=== PATIENT | male | born 1935 | race Caucasian/White ===

== ENCOUNTER 2017-10-31 09:14 | Inpatient (IN) | payer MEDICARE ==
[2017-10-31 09:36] LABS: #Eosinphils 0.1 thou/uL (0.0-0.7); #Monocytes 0.3 thou/uL (0.11-0.59); %Basophils 0.7 % (0.0-1.0); %Eosinophils 2.6 % (0.0-10.0); %Lymphocytes 30.1 % (21.0-51.0); %Neutrophils 58.6 % (42.0-75.0); Hemoglobin 14.4 g/dL (14.0-18.0); Mean Corpuscular HGB CONC 33.8 g/dL (32.0-36.0); Mean Corpuscular Hemoglobin 30.6 pg (27.0-31.0); Mean Corpuscular Volume 90.6 fl (80.0-94.0); Mean Platelet Volume 6.7 fL (7.4-10.4); Platelet Count 163 thou/uL (130-400); RBC Distribution Width 11.3 % (11.5-14.5); Red Blood Cell (RBC) Count 4.72 mill/uL (4.70-6.10); White Blood Cell (WBC) Count 3.4 thou/uL (4.8-10.8)
[2017-10-31 09:43] LABS: INR-International Normal Ratio 1.1; PTT 29.5 SEC (22.9-36.1); Prothrombin Time 13.9 SEC (12.0-14.7)
[2017-10-31 09:52] LABS: ALT (SGPT) 7 U/L (8-55); AST (SGOT) 12 U/L (5-34); Albumin 4.3 g/dL (3.4-4.8); Alkaline Phosphatase 72 U/L (40-150); Anion Gap 11 mmol/L (10-20); BUN (Urea Nitrogen) 20 mg/dL (8.4-25.7); Bilirubin, Total 0.7 mg/dL (0.2-1.2); CK (CPK) 55 U/L (30-200); Calc. Creatinine Clearance 0 mL/min (70-130); Calcium 9.4 mg/dL (7.8-10.44); Carbon Dioxide 28 mmol/L (23-31); Chloride 101 mmol/L (98-107); Estimated GFR-MDRD 63; Glucose 148 mg/dL (83-110); Potassium 4.2 mmol/L (3.5-5.1); Protein, Total 7.3 g/dL (5.8-8.1); Sodium 136 mmol/L (136-145)
[2017-10-31 09:54] LABS: CKMB 0.7 ng/mL (0-6.6); Troponin I Less than 0.010 ng/mL (< 0.028)
[2017-10-31 10:24] LABS: Bilirubin Negative (Negative); Blood, Urine Negative (Negative); Clarity CLEAR (Clear); Glucose, Urine (Dipstick) Negative (Negative); Leukocyte Negative (Negative); Nitrite Negative (Negative); Protein, Urine (Dipstick) Negative (Neg-Trace); Specific Gravity, Urine 1.026 (1.002-1.036); Urobilinogen 0.2 mg/dL (0.2-1.0); pH, Urine 7.5 (5.0-9.0)
--- NOTE | 2017-10-31 11:17 | CT ---
NONCONTRAST CT HEAD: Date: 10-31-17 History: Left sided facial droop and weakness with slurred speech. Last seen normal at 2100 hours. Comparison: None available. FINDINGS: There are low density foci seen in each basal ganglia suggesting lacunar infarctions of indeterminate age. There is no evidence of an acute cortical infarction, hemorrhage, mass effect, or midline shift . There is diffuse cerebral volume loss. Ventricular system is mildly prominent but overall within no rmal limits for the degree of sulcal atrophy. Visualized paranasal sinuses and mastoid air cells are clear. Calvarial structures are intact. IMPRESSION: 1. Lacunar infarctions of indeterminate age seen in each basal ganglia. There is no evidence of an ac [place] cortical infarction. 2. Cerebral volume loss. 3. Above findings discussed with Dr. Field in the Emergency Department on 10-31-17 at 0923 hours. POS: [facility]
--- NOTE | 2017-10-31 11:42 | CT ---
CT ANGIO HEAD AND NECK WITH IV CONTRAST AND 3D POSTPROCESSING CT PERFUSION: Date: 10/31/17 HISTORY: 82-year-old male with left-sided facial droop and slurred speech FINDINGS: There is good flow without significant stenosis in the common carotid, internal carotid, and vertebra l arteries. There is a small amount of calcified plaque. Intracranially, no evidence of major vessel occlusion, significant stenosis, or aneurysm formation is seen. The CT perfusion demonstrates no evid ence of ischemia or infarct. IMPRESSION: No evidence of acute ischemia or occlusive disease. This study was interpreted in consultation with Dr. Eric Orellana, who concurs. Discussed over the telephone with ER physician, Dr. Field, at 0958 hours. CODE CR. POS: [facility]
--- NOTE | 2017-10-31 11:49 | RAD ---
PORTABLE AP CHEST RADIOGRAPH: Date: 10-31-17 History: Altered mental status. Comparison: 09-02-09 FINDINGS: Cardiac silhouette and pulmonary vasculature are within normal limits for the portable technique of t he study. The lungs remain clear. There has been no interval change when compared to the prior exam. IMPRESSION: No acute cardiopulmonary process. POS: [facility]
[2017-10-31] MEDS ORDERED: ISOVUE-370 76%-LOCM 1 ML ONE (13:07)
[2017-10-31 16:45] VITALS: BMI 34.7
[2017-10-31] MEDS ORDERED: Ondansetron ODT 4 MG TAB PO PRN (19:52)
[2017-10-31] MEDS ORDERED: hydrALAZINE 20 MG/ML VIAL SLOW IVP PRN (19:52)
[2017-10-31] MEDS ORDERED: Acetaminophen 500 MG TAB PO PRN (19:52)
[2017-10-31] MEDS ORDERED: Ondansetron PF 4 MG/2 ML Vial IVP PRN (19:52)
[2017-10-31] MEDS ORDERED: Carbidopa/Levodopa 25-250 mg Tablet PO SCH (21:00)
[2017-10-31] MEDS ORDERED: Atorvastatin Calcium 40 MG TAB PO SCH (21:00)
[2017-10-31] MEDS: Carbidopa/Levodopa 25-250 mg Tablet PO SCH (21:31)
[2017-10-31] MEDS: Famotidine 20 MG TAB PO SCH (21:31)
--- NOTE | 2017-11-01 02:28 | HP ---
DATE OF ADMISSION: 10/31/2017 PRIMARY CARE PHYSICIAN: Dr. Federico Llamas. CHIEF COMPLAINT: Right facial droop and difficulty speaking. HISTORY OF PRESENT ILLNESS: This is an 82-year-old male who presented to [facility] Emergency Department complaining of right facial droop and difficulty forming words and speaking after awaking this morning on 10/31/2017. Patient states he had woken up from sleep whe n he noticed the symptoms and his pointed out as well. Patient denied any headache, visual dist urbance, difficulty with hearing, or swallowing. Patient admitted to some right upper extremity weak ness and the right facial droop persisted. Patient states he had difficulty finding words and formin g words. Patient's gave him two full-strength aspirin, which he took after noticing the symptom s. Patient apparently had TIA stroke-like symptoms in 2013, undergoing MRI imaging of the brain at t hat time showing an area of acute CVA in the right precentral gyrus. Patient apparently was treated with aspirin therapy at that time; however, patient currently states he does not take aspirin or Plav ix on a daily basis. Patient states he does take Sinemet for Parkinson's disease as well as medicati on for his prostate. Patient denies any other exposure history, travel, recent head trauma, fever, c hills, dental procedures, or eye surgery. Patient states he normally has some difficulty ambulating, but typically does not use any assistive device. 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 In the emergency room, patient underwent CT imaging of the brain showing lacunar infarctions of indeter minate age in each basil ganglia. Also noted with cerebral volume loss with chronic changes bilatera lly. Patient also underwent CT angiogram of the head and neck showing no specific occlusive process or stenosis. Patient was referred to the Hospitalist Service for admission. PAST MEDICAL HISTORY: 1. History of TIA in 2013. 2. Parkinson's disease with current Sinemet. 3. Prostate carcinoma, status post medical therapy. PAST SURGICAL HISTORY: 1. Status post colonoscopy with polypectomy. 2. Status post right middle finger excision of benign schwannoma. CURRENT MEDICATIONS: Sinemet 25/250 mg 1 tab p.o. b.i.d. ALLERGIES: No known drug allergies. FAMILY HISTORY: Positive for hypertension. SOCIAL HISTORY: Patient is , residing in [place], [place]. 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 No current alcohol, tobacco, or illicit drug use. REVIEW OF SYSTEMS: The following complete review of systems was otherwise negative, except as stated per HPI: Constitutional: Weight loss or gain, ability to conduct usual activities. Skin: Rash, i tching. Eyes: Double vision, pain. ENT/Mouth: Nose bleeding, neck stiffness, pain, tenderness. C ardiovascular: Palpitations, dyspnea on exertion, orthopnea. Respiratory: Shortness of breath, whe ezing, cough, hemoptysis, fever, or night sweats. Gastrointestinal: Poor appetite, abdominal pain, heartburn, nausea, vomiting, constipation, or diarrhea. Genitourinary: Urgency, frequency, dysuria, nocturia. Musculoskeletal: Pain, swelling. Neurologic/Psychiatric: Anxiety, depression. Allergy /Immunologic: Skin rash, bleeding tendency. PHYSICAL EXAMINATION: VITAL SIGNS: On admission blood pressure 148/94, pulse 92, respiratory rate 16, temperature 98.1 deg juan Fahrenheit, O2 saturation 98% on room air. GENERAL APPEARANCE: This is an 82-year-old male, alert and oriented x3, pleasant, in no ac bishop distress. HEENT: Pupils are equal, round, and reactive to light and accommodation. Extraocular muscles are in tact. No scleral icterus, no conjunctival injection. Nares patent. OP is clear. No oral lesions n oted. Right facial asymmetry noted. Scalp atraumatic. NECK: Supple, no cervical adenopathy, no thyromegaly, no carotid bruits, no JVD appreciated with cer vical spine with full active and passive range of motion. No meningeal signs appreciated. CHEST: Lungs are clear to auscultation bilaterally. CARDIOVASCULAR: S1, S2 with distant heart sounds. No murmur, rub, or gallop appreciated. ABDOMEN: Obese, soft, nontender, nondistended. Bowel sounds are positive in all four quadrants. Th ere is no hepatosplenomegaly, no abdominal bruits, no rebound or guarding appreciated. EXTREMITIES: Warm and dry with fair turgor. No clubbing, cyanosis, or asymmetric edema appreciated. Pulses palpable distally at the dorsalis pedis, posterior tibial, and popliteal arteries bilaterall y. Capillary refill less than 2 seconds. NEUROLOGIC: Right facial droop. Expressive aphasia. Right upper extremity with decreased flow coordinator stre ngth. Muscle strength 4/5 compared to the left upper extremity. Patient not observed ambulatory dur ing this exam. PERTINENT LABORATORY DATA AND X-RAY FINDINGS: Sodium 136, potassium 4.2, chloride 101, CO2 of 28, BU N 20, creatinine 1.11. Estimated GFR 63, glucose 148, calcium 9.4. LFTs within normal limits. Trop onin I negative x1. Albumin 4.3. CBC showed a white blood cell count 3.4, hemoglobin 14, hematocrit 43, platelet count 163. PT 13.9, INR 1.1, PTT 29.5. Urinalysis negative. CT of the brain without contrast dated 10/31/2017 showed lacunar infarctions of indeterminate age in each basal ganglia. Cer ebral volume loss diffusely. CT angiogram of the head and neck dated 10/31/2017 showed no focal sten osis or occlusive disease. Portable chest x-ray dated 10/31/2017 showed no acute cardiopulmonary pro cess. EKG dated 10/31/2017 by my interpretation shows sinus mechanism with occasional PVCs. Normal R- wave progression noted in the precordial leads. Left axis deviation noted. No acute ST-T wave hernández es appreciated. ASSESSMENT AND PLAN: 1. Acute transient ischemic attack. Patient will be admitted to the stroke unit. We will continue aspirin 325 mg daily. Continue general stroke protocol. Consult Neurology Service for evaluation. Obtain 2D transthoracic echocardiogram and MRI imaging of the brain to further delineate neuro-anatom y. 2. Expressive aphasia. Obtain speech therapy consult in the a.m. See #1 above for workup and manag ement. 3. Elevated blood pressure. We will continue to monitor blood pressure trend. Patient may need ini tiation of antihypertensive regimen prior to discharge. 4. Parkinson's disease. Resume home Sinemet and monitor clinical response. 5. Prophylaxis. Sequential compression devices while in bed. Pepcid 20 mg p.o. b.i.d. PT, OT and Speech therapy evaluation pending. 6. Code status is FULL. Surrogate medical decision maker is patient's spouse.
[2017-11-01 06:42] LABS: Eosinophils 4 % (0-10); Hemoglobin 14.5 g/dL (14.0-18.0); Lymphocytes 25 % (21-51); MDiff Complete? YES; Mean Corpuscular HGB CONC 33.8 g/dL (32.0-36.0); Mean Corpuscular Hemoglobin 30.6 pg (27.0-31.0); Mean Corpuscular Volume 90.4 fl (80.0-94.0); Mean Platelet Volume 6.7 fL (7.4-10.4); Monocytes 14 % (0-10); Neutrophil 57 % (42-75); Platelet Count 175 thou/uL (130-400); RBC Distribution Width 11.3 % (11.5-14.5); Red Blood Cell (RBC) Count 4.74 mill/uL (4.70-6.10); White Blood Cell (WBC) Count 4.4 thou/uL (4.8-10.8)
[2017-11-01 07:09] LABS: Anion Gap 14 mmol/L (10-20); BUN (Urea Nitrogen) 14 mg/dL (8.4-25.7); Calc. Creatinine Clearance 78 mL/min (70-130); Calcium 9.5 mg/dL (7.8-10.44); Carbon Dioxide 27 mmol/L (23-31); Cardiac Risk 4.8 (Less than 4.5); Chloride 103 mmol/L (98-107); Cholesterol 219 mg/dl (< 200 Desired); Estimated GFR-MDRD 74; Glucose 88 mg/dL (83-110); HDL Cholesterol 46 mg/dL (>60 Neg Risk); LDL Cholesterol, Calculated 142 mg/dL; Potassium 4.1 mmol/L (3.5-5.1); Sodium 140 mmol/L (136-145); Triglycerides 155 mg/dL (Less than 150)
[2017-11-01] MEDS: Famotidine 20 MG TAB PO SCH (08:33)
[2017-11-01] MEDS: Carbidopa/Levodopa 25-250 mg Tablet PO SCH (08:33)
[2017-11-01] MEDS ORDERED: Aspirin 325 mg Enteric Coated Tablet PO SCH (09:00)
[2017-11-01 12:02] VITALS: TEMP 97.4
--- NOTE | 2017-11-01 12:03 | MRI ---
MRI BRAIN WITHOUT CONTRAST: HISTORY: Left-sided facial droop and weakness with slurred speech, TIA. FINDINGS: There is a 13 mm focal area of restricted diffusion, consistent with an acute infarction, involving t he left basal ganglia and extending into the left periventricular white matter. No hemorrhage, midli ne shift, or abnormal extraaxial fluid collections are seen. There are changes of cortical atrophy a nd chronic small vessel ischemic disease. IMPRESSION: Acute lacunar infarction in the left basal ganglia. POS: [facility]
[2017-11-01 13:19] VITALS: BP 137/72
--- NOTE | 2017-11-02 01:51 | DIS ---
DATE OF ADMISSION: 10/31/2017 DATE OF DISCHARGE: 11/01/2017 DISCHARGE DIAGNOSES: 1. Acute lacunar infarction of the left basal ganglia. 2. Expressive aphasia, secondary to #1. 3. Right facial droop, secondary to #1. 4. Elevated blood pressure. 5. Parkinson's disease. 6. Hyperlipidemia. CONSULTATIONS: None. PERTINENT LABORATORY AND X-RAY FINDINGS: Creatinine ranged between 0.97-1.11 with estimated GFR rang ing between 63-74, troponin I negative x1. Total cholesterol 219, triglycerides 155, HDL 46, LDL 142 . CBC showed a white blood cell count ranging between 3.4-4.4. CT of the brain without contrast shari ed 10/31/2017 showed lacunar infarction of indeterminate age in each basal ganglia. Cerebral volume loss noted. CT angiogram of the head and neck showed no acute occlusive disease or stenosis. Portab le chest x-ray dated 10/31/2017 showed no acute cardiopulmonary process. MRI of the brain dated 08/2017 showed acute lacunar infarction in the left basal ganglia. No hemorrhage, midline shift, or e xtraaxial fluid collection noted. HOSPITAL COURSE: Patient was admitted to the stroke unit after initially presenting with dysarthria, right facial droop, and concern for TIA versus CVA. The patient underwent extensive evaluation incl uding multiple neuro imaging studies with MRI of the brain confirming an acute lacunar infarction of the left basal ganglia with some extension to the periventricular white matter. The patient with nemesio rologic deficits including dysarthria with mild expressive aphasia and right facial asymmetry. The p atient was continued on aspirin 325 mg daily as well as Lipitor 40 mg daily. The patient was schedul ed for 2D transthoracic echocardiogram and Neurology consultation; however, is wanting to leave the h ospital without further testing. The patient has been ambulatory in the hallways, tolerating regular oral intake, and overall feels fine. I have examined the patient at the time of discharge discussin g radiologic studies, current condition, and outpatient followup instructions. The patient and verbalized understanding and agreement and/or proceeding with discharge on 11/01/2017. DISCHARGE MEDICATIONS: 1. Enteric-coated aspirin 325 mg 1 tab p.o. daily. 2. Lipitor 40 mg p.o. at bedtime. 3. Carbidopa/levodopa 250 mg p.o. b.i.d. FOLLOWUP: The patient will follow up with his primary care provider, Dr. Ventura Llamas within 7 days of d ischarge. CONDITION ON DISCHARGE: Fair. ACTIVITY: Ad vianney. No driving until cleared by primary care provider. DIET: Heart healthy. SPECIAL INSTRUCTIONS: Recommend serial blood pressure monitoring with review of blood pressure trend with primary care provider. CODE STATUS: FULL. DISPOSITION: Home, 11/01/2017.
--- NOTE | 2017-11-18 15:58 | EKG ---
Test Reason : Blood Pressure : / mmHG Vent. Rate : 089 BPM Atrial Rate : 089 BPM P-R Int : 194 ms QRS Dur : 088 ms QT Int : 360 ms P-R-T Axes : 092 -31 048 degrees QTc Int : 438 ms Sinus rhythm with occasional Premature ventricular complexes Left axis deviation Abnormal ECG Confirmed by CRISTA ROWLAND ([id number]), manager editorial FABBY BRITTON ([id number]) on 11/18/2017 3:57:28 PM Referred By: Confirmed By:CRISTA ROWLAND
== END 2017-11-01 16:02 | disposition home or self-care (01) | DRG 66 ==
LOC: ERS 09:14 → ERHOLD 11:23 → 2SE 15:03
PROVIDERS: ADMIT Family Medicine; ATTEND Family Medicine
DX: I63.9 Cerebral infarction, unspecified (principal); G20 Parkinson's disease; C61 Malignant neoplasm of prostate; R47.01 Aphasia; R29.810 Facial weakness; R03.0 Elevated blood-pressure reading, without diagnosis of hypertension; E78.5 Hyperlipidemia, unspecified; R47.1 Dysarthria and anarthria
CPT/HCPCS: 0042T; 36415; 36416; 70450; 70496; 70498; 70551; 71045; 80048; 80053; 80061; 81003; 82553; 84484; 85007; 85025; 85027; 85610; 85730; 93005; G8978-GP-CJ; G8979-GP-CJ; G8980-GP-CJ; G8987-GO-CK; G8988-GO-CI; G8999-GN-CK; G9186-GN-CI

== ENCOUNTER 2019-11-25 22:29 | Observation (INO) | payer MEDICARE ==
[2019-11-25 23:34] LABS: #Eosinphils 0.1 thou/uL (0.0-0.7); #Lymphocytes 1.2 thou/uL (1.20-3.40); #Monocytes 0.8 thou/uL (0.11-0.59); %Basophils 0.2 % (0.0-1.0); %Eosinophils 1.2 % (0.0-10.0); %Lymphocytes 16.7 % (21.0-51.0); %Monocytes 11.2 % (0.0-10.0); %Neutrophils 70.7 % (42.0-75.0); Hemoglobin 13.6 g/dL (14.0-18.0); Mean Corpuscular Hemoglobin 30.7 pg (27.0-31.0); Mean Corpuscular Volume 93.3 fL (78.0-98.0); Platelet Count 140 thou/uL (130-400); Red Blood Cell (RBC) Count 4.44 mill/uL (4.70-6.10); White Blood Cell (WBC) Count 7.1 thou/uL (4.8-10.8)
[2019-11-25] MEDS ORDERED: Ondansetron PF 4 MG/2 ML Vial ONE (23:55)
[2019-11-25] MEDS ORDERED: Morphine 4 MG/ML VIAL ONE (23:55)
[2019-11-25 23:58] LABS: ALT (SGPT) 67 U/L (8-55); AST (SGOT) 160 U/L (5-34); Alkaline Phosphatase 69 U/L (40-110); Anion Gap 13 mmol/L (10-20); BUN (Urea Nitrogen) 33 mg/dL (8.4-25.7); Bilirubin, Total 0.9 mg/dL (0.2-1.2); Calc. Creatinine Clearance 0 mL/min (70-130); Calcium 9.4 mg/dL (7.8-10.44); Carbon Dioxide 28 mmol/L (23-31); Chloride 103 mmol/L (98-107); Estimated GFR-MDRD 66; Globulin 3.2 g/dL (2.4-3.5); Glucose 102 mg/dL (83-110); Potassium 4.1 mmol/L (3.5-5.1); Protein, Total 7.2 g/dL (5.8-8.1); Sodium 140 mmol/L (136-145)
[2019-11-26 00:10] LABS: CK (CPK) 4976 U/L (30-200)
[2019-11-26 00:19] LABS: CKMB 9.5 ng/mL (0-6.6)
[2019-11-26] MEDS ORDERED: Aspirin Chewable 81 MG TAB ONE ×2 (00:23→00:28)
[2019-11-26 02:47] LABS: Troponin I 0.095 ng/mL (< 0.028)
[2019-11-26] MEDS ORDERED: Senokot S 8.6-50 MG TAB PO PRN (03:40)
[2019-11-26] MEDS ORDERED: Acetaminophen 325 MG TAB PO PRN (03:40)
[2019-11-26] MEDS ORDERED: Sodium Chloride 0.9% 1,000 ML IV SCH (04:00)
[2019-11-26 04:03] VITALS: BMI 29.7
[2019-11-26 05:53] LABS: PTT 29.7 sec (22.9-36.1); Prothrombin Time 13.4 sec (12.0-14.7)
[2019-11-26 05:56] LABS: #Eosinphils 0.1 thou/uL (0.0-0.7); #Lymphocytes 1.3 thou/uL (1.20-3.40); #Monocytes 0.7 thou/uL (0.11-0.59); #Neutrophils 3.3 thou/uL (1.40-6.50); %Basophils 0.3 % (0.0-1.0); %Eosinophils 1.6 % (0.0-10.0); %Lymphocytes 24.9 % (21.0-51.0); %Monocytes 12.5 % (0.0-10.0); %Neutrophils 60.7 % (42.0-75.0); Hemoglobin 12.6 g/dL (14.0-18.0); Mean Corpuscular HGB CONC 32.7 g/dL (32.0-36.0); Mean Corpuscular Hemoglobin 30.3 pg (27.0-31.0); Mean Corpuscular Volume 92.6 fL (78.0-98.0); Mean Platelet Volume 8.2 fL (7.4-10.4); Platelet Count 125 thou/uL (130-400); RBC Distribution Width 11.8 % (11.5-14.5); Red Blood Cell (RBC) Count 4.15 mill/uL (4.70-6.10); White Blood Cell (WBC) Count 5.4 thou/uL (4.8-10.8)
[2019-11-26 06:19] LABS: Troponin I 0.116 ng/mL (< 0.028)
[2019-11-26 06:21] LABS: Anion Gap 12 mmol/L (10-20); BUN (Urea Nitrogen) 26 mg/dL (8.4-25.7); CK (CPK) 3252 U/L (30-200); Calc. Creatinine Clearance 75 mL/min (70-130); Calcium 8.4 mg/dL (7.8-10.44); Carbon Dioxide 27 mmol/L (23-31); Chloride 106 mmol/L (98-107); Estimated GFR-MDRD 74; Glucose 93 mg/dL (83-110); Potassium 3.8 mmol/L (3.5-5.1); Sodium 141 mmol/L (136-145)
--- NOTE | 2019-11-26 07:06 | HP ---
CHIEF COMPLAINT: Fall and left chest pain. HISTORY OF PRESENT ILLNESS: The patient is a very pleasant 84-year-old male, who comes into the hospital after a fall and started having left-sided chest pain. The patient states that he had a mechanical fall. He tripped on his concrete steps and fell about 2 days ago. The patient stated that he lives alone. His daughter checks on him very frequently. The patient states that he was unable to get up, so he laid down on the floor and spent the night on the floor. When his daughter came to check on him, he was found on the ground, at this time her and the daughter got him up and initially he did well, however, started having some chest pain, so he was brought into the hospital for further evaluation. He states that he did hit his head, but he did not think he lost consciousness. The patient denies any nausea, vomiting, diarrhea, any fevers, or chills. He states that he was in his good health prior to this fall. REVIEW OF SYSTEMS: All negative except for the ones mentioned above in the HPI. PAST MEDICAL HISTORY: 1. History of lacunar infarct. 2. TIA in 2013, Parkinson's, and prostate cancer status post medical therapy. PAST SURGICAL HISTORY: He has had a colonoscopy, polypectomy, right middle finger excision and benign . MEDICATIONS: As of the following, he is on: 1. Carbidopa/levodopa one p.o. b.i.d. 2. Aspirin 325 daily. 3. Atorvastatin 40 mg at bedtime. ALLERGIES: NO KNOWN DRUG ALLERGIES. FAMILY HISTORY: History of high blood pressure. SOCIAL HISTORY: He is currently at home, lives alone, his daughter checks on him quite frequently. Denies any drug use or any smoking history. He drinks about 2 beers on a daily basis. PHYSICAL EXAMINATION: VITAL SIGNS: As of the following; temperature of 97.9, pulse 94, blood pressure 160/73, respirations 20, and sats 100% on room air. GENERAL: He is awake, alert, and oriented x3. Does not appear in any distress. CV: S1 and S2 present. No murmurs, rubs, or gallops. LUNGS: Clear to auscultation. No rhonchi or wheezes noted. ABDOMEN: Soft and nontender. Bowel sounds are present x2. Left chest wall pain upon palpation to his left chest wall area. EXTREMITIES: He has mild 1+ lower extremity edema. Pedal pulses present x2. NEUROLOGIC: Neurovascular-mon, no focal deficits noted. SKIN: He has multiple bruising in bilateral upper extremities. He has some scratches to bilateral lower extremities. LABORATORY RESULTS: WBCs of 7.1, hemoglobin of 13.6, hematocrit of 41.4, platelets of 140. Coagulation was not done. Sodium of 140, potassium of 4.1, BUN of 33, creatinine 1.07. His LFTs were mildly elevated. His CK . His CK-MB was 9.5, and his troponin was 0.125 initially, then went down to 0.095. He did have a CT brain, which I told was negative and chest x-ray that did not show any acute abnormalities. ASSESSMENT AND PLAN: The patient is a very pleasant 84-year-old man, who presents to the hospital after having chest pain. 1. Atypical chest pain. The patient's chest pain is very reproducible. EKG did not show any acute changes. We will trend his troponin. His troponins already trending downwards. We will get an echocardiogram on this patient. 2. Status post mechanical fall. We will get PT/OT to evaluate this patient. We will also check a vitamin B12 on this patient. 3. Rhabdomyolysis. We will start the patient on some gentle hydration, but not very severe. We will recheck another CK to make sure that it is improving and continue to monitor. 4. History of transient ischemic attacks and stroke. The patient is on 325 aspirin at home. He has significant bruising to bilateral upper extremity. We will change it to aspirin 81 mg daily. We will hold off on the statin given his mild elevated LFTs, which are most likely secondary to trauma and we will continue to monitor. 5. Deep venous thrombosis prophylaxis. We will put the patient on some SCDs and subcu Lovenox. Job ID: [id number]
--- NOTE | 2019-11-26 08:22 | RAD ---
CHEST 1 VIEW: HISTORY: Fall. COMPARISON: Radiograph 10/31/2017. FINDINGS: Incidental note is made of azygous fissure. The pulmonary arteries are dilated. Mild hypoinflation. No confluent airspace consolidation, pneumothorax, or effusion. Heart size is enlarged. Multiple upper abdominal surgical clips. IMPRESSION: No acute intrathoracic abnormality. POS: HOME
--- NOTE | 2019-11-26 08:23 | CT ---
CT BRAIN WITHOUT CONTRAST: HISTORY: Trauma. Tripped and fell. COMPARISON: CT brain 10/31/2017. FINDINGS: Mild atrophy. No acute hemorrhage or infarct. Old lacunar infarcts. The calvarium is intact. Paranasal sinuses and mastoids are clear. IMPRESSION: No acute posttraumatic intracranial sequelae. POS: HOME
[2019-11-26] MEDS: Enoxaparin Sodium 40 MG/0.4 ML SYRINGE SC SCH (08:31)
[2019-11-26] MEDS: Carbidopa/Levodopa 25-250 mg Tablet PO SCH ×2 (08:31→21:13)
[2019-11-26] MEDS: Aspirin 81 mg Enteric Coated Tablet PO SCH (08:31)
[2019-11-26] MEDS ORDERED: Carbidopa/Levodopa 25-250 mg Tablet PO SCH (09:00)
[2019-11-26] MEDS ORDERED: Prevnar 13-Val Conj/PF 0.5 ML SYRINGE IM ONE (09:00)
[2019-11-27 05:09] LABS: Anion Gap 9 mmol/L (10-20); BUN (Urea Nitrogen) 16 mg/dL (8.4-25.7); CK (CPK) 1981 U/L (30-200); Calc. Creatinine Clearance 97 mL/min (70-130); Calcium 8.5 mg/dL (7.8-10.44); Carbon Dioxide 29 mmol/L (23-31); Chloride 105 mmol/L (98-107); Estimated GFR-MDRD Greater than 90; Glucose 87 mg/dL (83-110); Potassium 3.9 mmol/L (3.5-5.1); Sodium 139 mmol/L (136-145)
[2019-11-27 05:58] LABS: Band 7 % (5-11); Eosinophils 3 % (0-10); Hemoglobin 12.5 g/dL (14.0-18.0); Lymphocytes 26 % (21-51); MDiff Complete? YES; Mean Corpuscular HGB CONC 32.5 g/dL (32.0-36.0); Mean Corpuscular Hemoglobin 30.2 pg (27.0-31.0); Mean Corpuscular Volume 93.2 fL (78.0-98.0); Mean Platelet Volume 8.4 fL (7.4-10.4); Monocytes 10 % (0-10); Neutrophil 54 % (42-75); Platelet Count 127 thou/uL (130-400); RBC Distribution Width 11.7 % (11.5-14.5); Red Blood Cell (RBC) Count 4.13 mill/uL (4.70-6.10); White Blood Cell (WBC) Count 4.6 thou/uL (4.8-10.8)
[2019-11-27] MEDS: Enoxaparin Sodium 40 MG/0.4 ML SYRINGE SC SCH (08:28)
[2019-11-27] MEDS: Aspirin 81 mg Enteric Coated Tablet PO SCH (08:28)
[2019-11-27] MEDS: Carbidopa/Levodopa 25-250 mg Tablet PO SCH (08:28)
[2019-11-27 11:27] VITALS: TEMP 98.3
[2019-11-27 14:51] VITALS: BP 142/74
--- NOTE | 2019-11-27 17:04 | DIS ---
DATE OF ADMISSION: 11/26/2019 DATE OF DISCHARGE: 11/27/2019 DISCHARGE DIAGNOSES: 1. Rhabdomyolysis. 2. Status post fall. 3. Atypical chest pain. 4. Dehydration. DISCHARGE MEDICATIONS: 1. Levodopa/carbidopa 50 mg/25 mg orally twice daily. 2. Aspirin 81 mg orally daily. 3. Atorvastatin 40 mg orally nightly. 4. Oxybutynin 1 tablet 5 mg orally daily. 5. Tamsulosin 0.4 mg orally daily. 6. Trolamine 10% cream 1 application topically q.i.d. for pain. HISTORY OF PRESENT ILLNESS AND HOSPITAL COURSE: The patient is an 84-year-old male with past medical history of TIA and CVA, who presented to the hospital after he was found on the ground at home. The patient stated that he tripped and fell 2 days ago and was not able to get back on his feet. The patient stayed on the floor for 2 days until he was found by his daughter, who brought him to the hospital. Initial workup revealed dehydration and rhabdomyolysis, likely related to his stay on the ground. CT scan of the head did not reveal any acute abnormalities. The patient was admitted to the hospital and managed with IV hydration, which led to improvement in his rhabdomyolysis and dehydration. At this time, he is stable for discharge. His daughter stated that she will be staying with him and will be arranging home health with PT and OT. Job ID: [id number]
== END 2019-11-27 14:17 | disposition home or self-care (01) ==
LOC: ERS 22:29 → 2NO 11-26 00:40
PROVIDERS: ADMIT Internal Medicine; ATTEND Internal Medicine
DX: M62.82 Rhabdomyolysis (principal); R07.89 Other chest pain; E86.0 Dehydration; G20 Parkinson's disease; Z86.73 Personal history of transient ischemic attack (TIA), and cerebral infarction without residual deficits; Z79.82 Long term (current) use of aspirin; Z79.899 Other long term (current) drug therapy; W01.0XXA Fall on same level from slipping, tripping and stumbling without subsequent striking against object, initial encounter
CPT/HCPCS: 70450; 71045; 80048 ×2; 80053; 82550 ×3; 82553; 84484 ×3; 85007; 85025 ×2; 85027; 85610; 85730; 93005; 93306; 96372 ×2; 96374; 96375; 97116; 97139 ×3; 97535; 99285; G0378 ×3; 36415; J1650; J2270; J2405

== ENCOUNTER 2021-03-12 19:26 | Inpatient (IN) | payer MEDICARE ==
[2021-03-12] MEDS ORDERED: Magnesium 2 GM/50 ML BAG (IN WATER) ONE (20:03)
[2021-03-12] MEDS ORDERED: Amiodarone 150 MG/3 ML VIAL ONE (20:08)
[2021-03-12 20:24] LABS: #Lymphocytes 0.5 thou/uL (1.20-3.40); #Monocytes 0.9 thou/uL (0.11-0.59); #Neutrophils 8.3 thou/uL (1.40-6.50); %Eosinophils 0.2 % (0.0-10.0); %Lymphocytes 4.8 % (21.0-51.0); %Monocytes 9.6 % (0.0-10.0); %Neutrophils 85.5 % (42.0-75.0); Hemoglobin 14.3 g/dL (14.0-18.0); Mean Corpuscular Hemoglobin 30.9 pg (27.0-31.0); Mean Platelet Volume 7.4 fL (7.4-10.4); Platelet Count 188 thou/uL (130-400); RBC Distribution Width 11.6 % (11.5-14.5); Red Blood Cell (RBC) Count 4.62 mill/uL (4.70-6.10); White Blood Cell (WBC) Count 9.7 thou/uL (4.8-10.8)
[2021-03-12 20:42] LABS: ALT (SGPT) 16 U/L (8-55); AST (SGOT) 35 U/L (5-34); Albumin 3.9 g/dL (3.4-4.8); Alkaline Phosphatase 64 U/L (40-110); Anion Gap 14 mmol/L (10-20); BUN (Urea Nitrogen) 19 mg/dL (8.4-25.7); Bilirubin, Total 1.2 mg/dL (0.2-1.2); CK (CPK) 1052 U/L (30-200); Calc. Creatinine Clearance 0 mL/min (70-130); Calcium 9.7 mg/dL (7.8-10.44); Carbon Dioxide 25 mmol/L (23-31); Chloride 104 mmol/L (98-107); Globulin 3.4 g/dL (2.4-3.5); Glucose 147 mg/dL (83-110); Potassium 3.9 mmol/L (3.5-5.1); Protein, Total 7.3 g/dL (5.8-8.1); Sodium 139 mmol/L (136-145)
[2021-03-12 21:46] LABS: SARS-CoV-2 NAA Rapid Test Not Detected (NotDetected)
[2021-03-12] MEDS ORDERED: Loperamide HCl 2 MG CAP PO PRN (22:03)
[2021-03-12 22:51] LABS: Lipase 12 U/L (8-78); Magnesium 2.1 mg/dL (1.6-2.6)
[2021-03-12 23:14] LABS: CKMB 12.5 ng/mL (0-6.6)
[2021-03-13] MEDS: Amiodarone 450 MG in Dextrose 5% in Water 250 ML IVPB SCH (02:00)
[2021-03-13 04:34] LABS: ALT (SGPT) 16 U/L (8-55); AST (SGOT) 38 U/L (5-34); Albumin 3.6 g/dL (3.4-4.8); Alkaline Phosphatase 62 U/L (40-110); Anion Gap 13 mmol/L (10-20); BUN (Urea Nitrogen) 19 mg/dL (8.4-25.7); Calc. Creatinine Clearance 69 mL/min (70-130); Calcium 9.2 mg/dL (7.8-10.44); Carbon Dioxide 24 mmol/L (23-31); Chloride 108 mmol/L (98-107); Globulin 3.1 g/dL (2.4-3.5); Glucose 120 mg/dL (83-110); Potassium 4.1 mmol/L (3.5-5.1); Protein, Total 6.7 g/dL (5.8-8.1); Sodium 141 mmol/L (136-145)
[2021-03-13 07:04] LABS: Hemoglobin 13.6 g/dL (14.0-18.0); Mean Corpuscular HGB CONC 33.3 g/dL (32.0-36.0); Mean Corpuscular Hemoglobin 30.4 pg (27.0-31.0); Mean Corpuscular Volume 91.3 fL (78.0-98.0); Mean Platelet Volume 7.1 fL (7.4-10.4); Platelet Count 164 thou/uL (130-400); RBC Distribution Width 11.7 % (11.5-14.5); Red Blood Cell (RBC) Count 4.48 mill/uL (4.70-6.10); White Blood Cell (WBC) Count 8.2 thou/uL (4.8-10.8)
[2021-03-13 07:39] LABS: Band 3 % (5-11); Lymphocytes 17 % (21-51); MDiff Complete? YES; Monocytes 3 % (0-10); Neutrophil 77 % (42-75)
[2021-03-13] MEDS: Aspirin 81 mg Enteric Coated Tablet PO SCH (10:12)
[2021-03-13] MEDS: Tamsulosin HCl 0.4 MG CAP PO SCH (10:12)
[2021-03-13] MEDS: Enoxaparin Sodium 40 MG/0.4 ML SYRINGE SC SCH (10:12)
[2021-03-13] MEDS: Famotidine 20 MG TAB PO SCH ×2 (10:12→20:26)
[2021-03-13] MEDS: Carbidopa/Levodopa 25-250 mg Tablet PO SCH ×2 (10:12→20:27)
[2021-03-13] MEDS: Oxybutynin ER 5 MG TAB PO SCH (10:12)
[2021-03-13] MEDS: Atorvastatin Calcium 40 MG TAB PO SCH (20:27)
[2021-03-13] MEDS ORDERED: Lorazepam 2 MG/ML VIAL SLOW IVP SCH (22:27)
[2021-03-14] MEDS: Labetalol HCl 100 MG/20 ML VIAL SLOW IVP SCH ×2 (03:10→04:40)
[2021-03-14 07:34] LABS: #Eosinphils 0.1 thou/uL (0.0-0.7); #Lymphocytes 0.8 thou/uL (1.20-3.40); #Monocytes 0.8 thou/uL (0.11-0.59); #Neutrophils 4.7 thou/uL (1.40-6.50); %Basophils 0.3 % (0.0-1.0); %Eosinophils 1.2 % (0.0-10.0); %Lymphocytes 12.1 % (21.0-51.0); %Monocytes 12.1 % (0.0-10.0); %Neutrophils 74.3 % (42.0-75.0); Hemoglobin 12.3 g/dL (14.0-18.0); Mean Corpuscular HGB CONC 33.4 g/dL (32.0-36.0); Mean Corpuscular Hemoglobin 30.7 pg (27.0-31.0); Mean Corpuscular Volume 91.9 fL (78.0-98.0); Mean Platelet Volume 7.4 fL (7.4-10.4); Platelet Count 154 thou/uL (130-400); RBC Distribution Width 11.5 % (11.5-14.5); Red Blood Cell (RBC) Count 4.01 mill/uL (4.70-6.10); White Blood Cell (WBC) Count 6.3 thou/uL (4.8-10.8)
[2021-03-14 07:51] LABS: Anion Gap 13 mmol/L (10-20); BUN (Urea Nitrogen) 15 mg/dL (8.4-25.7); Calc. Creatinine Clearance 76 mL/min (70-130); Calcium 8.6 mg/dL (7.8-10.44); Carbon Dioxide 25 mmol/L (23-31); Chloride 104 mmol/L (98-107); Glucose 115 mg/dL (83-110); Potassium 3.6 mmol/L (3.5-5.1); Sodium 138 mmol/L (136-145)
[2021-03-14 08:08] LABS: Free T4 (Free Thyroxine) 1.07 ng/dL (0.70-1.48)
[2021-03-14] MEDS: Oxybutynin ER 5 MG TAB PO SCH (08:28)
[2021-03-14] MEDS: Aspirin 81 mg Enteric Coated Tablet PO SCH (08:28)
[2021-03-14] MEDS: Tamsulosin HCl 0.4 MG CAP PO SCH (08:28)
[2021-03-14] MEDS: Famotidine 20 MG TAB PO SCH ×2 (08:28→20:32)
[2021-03-14] MEDS: Carbidopa/Levodopa 25-250 mg Tablet PO SCH ×2 (08:28→20:32)
[2021-03-14] MEDS: Enoxaparin Sodium 40 MG/0.4 ML SYRINGE SC SCH (08:28)
[2021-03-14] MEDS: Amiodarone 450 MG in Dextrose 5% in Water 250 ML IVPB SCH (13:41)
[2021-03-14] MEDS: Atorvastatin Calcium 40 MG TAB PO SCH (20:32)
[2021-03-14] MEDS: Amiodarone 200 MG TAB PO SCH (20:32)
[2021-03-15] MEDS ORDERED: Lidocaine 1% w/Epinephrine 1:100K 20 ML VIAL ONE (07:56)
[2021-03-15] MEDS: Amiodarone 200 MG TAB PO SCH ×2 (08:04→20:51)
[2021-03-15] MEDS: Carbidopa/Levodopa 25-250 mg Tablet PO SCH ×2 (08:04→20:51)
[2021-03-15] MEDS: Famotidine 20 MG TAB PO SCH ×2 (08:04→20:51)
[2021-03-15] MEDS: Tamsulosin HCl 0.4 MG CAP PO SCH (08:04)
[2021-03-15] MEDS: Oxybutynin ER 5 MG TAB PO SCH (08:04)
[2021-03-15] MEDS: Aspirin 81 mg Enteric Coated Tablet PO SCH (08:04)
[2021-03-15] MEDS: Enoxaparin Sodium 40 MG/0.4 ML SYRINGE SC SCH (08:58)
[2021-03-15] MEDS: HYDROcodone/Acetaminophen 5/325 mg Tablet PO PRN (20:50)
[2021-03-15] MEDS: Atorvastatin Calcium 40 MG TAB PO SCH (20:51)
[2021-03-16 05:24] VITALS: BMI 27.1
[2021-03-16] MEDS: Tamsulosin HCl 0.4 MG CAP PO SCH (09:27)
[2021-03-16] MEDS: Carbidopa/Levodopa 25-250 mg Tablet PO SCH ×2 (09:27→21:17)
[2021-03-16] MEDS: Aspirin 81 mg Enteric Coated Tablet PO SCH (09:27)
[2021-03-16] MEDS: Amiodarone 200 MG TAB PO SCH ×2 (09:27→21:17)
[2021-03-16] MEDS: Oxybutynin ER 5 MG TAB PO SCH (09:28)
[2021-03-16] MEDS: Famotidine 20 MG TAB PO SCH ×2 (09:28→21:17)
[2021-03-16] MEDS: Enoxaparin Sodium 40 MG/0.4 ML SYRINGE SC SCH (09:29)
[2021-03-16] MEDS: Lidocaine 5% Patch TD SCH (10:07)
[2021-03-16] MEDS: HYDROcodone/Acetaminophen 5/325 mg Tablet PO PRN (21:17)
[2021-03-16] MEDS: Atorvastatin Calcium 40 MG TAB PO SCH (21:17)
[2021-03-16] MEDS: Transdermal Patch Removal TOP SCH (21:23)
[2021-03-17] MEDS: Carbidopa/Levodopa 25-250 mg Tablet PO SCH ×2 (08:32→21:13)
[2021-03-17] MEDS: Aspirin 81 mg Enteric Coated Tablet PO SCH (08:32)
[2021-03-17] MEDS: Amiodarone 200 MG TAB PO SCH ×2 (08:32→21:10)
[2021-03-17] MEDS: Enoxaparin Sodium 40 MG/0.4 ML SYRINGE SC SCH (08:32)
[2021-03-17] MEDS: Oxybutynin ER 5 MG TAB PO SCH (08:33)
[2021-03-17] MEDS: Lidocaine 5% Patch TD SCH (08:33)
[2021-03-17] MEDS: Famotidine 20 MG TAB PO SCH ×2 (08:33→21:10)
[2021-03-17] MEDS: Tamsulosin HCl 0.4 MG CAP PO SCH (08:33)
[2021-03-17] MEDS: HYDROcodone/Acetaminophen 5/325 mg Tablet PO PRN (21:11)
[2021-03-17] MEDS: Atorvastatin Calcium 40 MG TAB PO SCH (21:11)
[2021-03-17] MEDS: Transdermal Patch Removal TOP SCH (23:00)
[2021-03-18] MEDS: Enoxaparin Sodium 40 MG/0.4 ML SYRINGE SC SCH (08:52)
[2021-03-18] MEDS: Tamsulosin HCl 0.4 MG CAP PO SCH (08:52)
[2021-03-18] MEDS: Oxybutynin ER 5 MG TAB PO SCH (08:52)
[2021-03-18] MEDS: Carbidopa/Levodopa 25-250 mg Tablet PO SCH ×2 (08:52→21:25)
[2021-03-18] MEDS: Famotidine 20 MG TAB PO SCH ×2 (08:52→21:25)
[2021-03-18] MEDS: Aspirin 81 mg Enteric Coated Tablet PO SCH (08:52)
[2021-03-18] MEDS: Amiodarone 200 MG TAB PO SCH ×2 (08:52→21:25)
[2021-03-18] MEDS: Lidocaine 5% Patch TD SCH (09:04)
[2021-03-18] MEDS: Atorvastatin Calcium 40 MG TAB PO SCH (21:25)
[2021-03-18] MEDS: Transdermal Patch Removal TOP SCH (21:34)
[2021-03-19] MEDS: HYDROcodone/Acetaminophen 5/325 mg Tablet PO PRN (08:34)
[2021-03-19] MEDS: Aspirin 81 mg Enteric Coated Tablet PO SCH (08:35)
[2021-03-19] MEDS: Tamsulosin HCl 0.4 MG CAP PO SCH (08:35)
[2021-03-19] MEDS: Amiodarone 200 MG TAB PO SCH ×2 (08:35→21:12)
[2021-03-19] MEDS: Enoxaparin Sodium 40 MG/0.4 ML SYRINGE SC SCH (08:35)
[2021-03-19] MEDS: Famotidine 20 MG TAB PO SCH ×2 (08:35→21:12)
[2021-03-19] MEDS: Oxybutynin ER 5 MG TAB PO SCH (08:40)
[2021-03-19] MEDS: Carbidopa/Levodopa 25-250 mg Tablet PO SCH ×2 (08:41→21:12)
[2021-03-19] MEDS: Lidocaine 5% Patch TD SCH (09:37)
[2021-03-19] MEDS: Atorvastatin Calcium 40 MG TAB PO SCH (21:12)
[2021-03-19] MEDS: Transdermal Patch Removal TOP SCH (21:14)
[2021-03-20] MEDS: Acetaminophen 325 MG TAB PO PRN (10:02)
[2021-03-20] MEDS: Tamsulosin HCl 0.4 MG CAP PO SCH (10:02)
[2021-03-20] MEDS: Aspirin 81 mg Enteric Coated Tablet PO SCH (10:02)
[2021-03-20] MEDS: Oxybutynin ER 5 MG TAB PO SCH (10:03)
[2021-03-20] MEDS: Famotidine 20 MG TAB PO SCH ×2 (10:03→20:12)
[2021-03-20] MEDS: Carbidopa/Levodopa 25-250 mg Tablet PO SCH ×2 (10:03→20:12)
[2021-03-20] MEDS: Enoxaparin Sodium 40 MG/0.4 ML SYRINGE SC SCH (10:03)
[2021-03-20] MEDS: Amiodarone 200 MG TAB PO SCH ×2 (10:03→20:12)
[2021-03-20] MEDS: Lidocaine 5% Patch TD SCH (10:03)
[2021-03-20 15:03] LABS: #Basophils 0.1 thou/uL (0.0-0.2); #Eosinphils 0.1 thou/uL (0.0-0.7); #Lymphocytes 1.3 thou/uL (1.20-3.40); #Monocytes 0.8 thou/uL (0.11-0.59); #Neutrophils 4.9 thou/uL (1.40-6.50); %Basophils 0.7 % (0.0-1.0); %Eosinophils 1.5 % (0.0-10.0); %Neutrophils 68.8 % (42.0-75.0); Hemoglobin 12.4 g/dL (14.0-18.0); Mean Corpuscular HGB CONC 33.7 g/dL (32.0-36.0); Mean Corpuscular Hemoglobin 30.5 pg (27.0-31.0); Mean Corpuscular Volume 90.7 fL (78.0-98.0); Mean Platelet Volume 7.2 fL (7.4-10.4); Platelet Count 237 thou/uL (130-400); RBC Distribution Width 11.2 % (11.5-14.5); Red Blood Cell (RBC) Count 4.07 mill/uL (4.70-6.10); White Blood Cell (WBC) Count 7.1 thou/uL (4.8-10.8)
[2021-03-20 15:20] LABS: Anion Gap 12 mmol/L (10-20); BUN (Urea Nitrogen) 20 mg/dL (8.4-25.7); Calc. Creatinine Clearance 56 mL/min (70-130); Carbon Dioxide 28 mmol/L (23-31); Chloride 98 mmol/L (98-107); Potassium 4.5 mmol/L (3.5-5.1); Sodium 133 mmol/L (136-145)
[2021-03-20 15:21] LABS: Calcium 8.6 mg/dL (7.8-10.44); Glucose 114 mg/dL (83-110)
[2021-03-20] MEDS: Atorvastatin Calcium 40 MG TAB PO SCH (20:12)
[2021-03-20] MEDS: Transdermal Patch Removal TOP SCH (20:13)
[2021-03-20] MEDS: Lorazepam 2 MG/ML VIAL SLOW IVP PRN (22:00)
[2021-03-20 23:19] LABS: SARS-CoV-2 PCR by NAA Not Detected (NotDetected)
[2021-03-21] MEDS: Tamsulosin HCl 0.4 MG CAP PO SCH (09:04)
[2021-03-21] MEDS: Aspirin 81 mg Enteric Coated Tablet PO SCH (09:04)
[2021-03-21] MEDS: Famotidine 20 MG TAB PO SCH ×2 (09:04→20:27)
[2021-03-21] MEDS: Amiodarone 200 MG TAB PO SCH ×2 (09:04→20:27)
[2021-03-21] MEDS: Enoxaparin Sodium 40 MG/0.4 ML SYRINGE SC SCH (09:05)
[2021-03-21] MEDS: Carbidopa/Levodopa 25-250 mg Tablet PO SCH ×2 (09:09→20:27)
[2021-03-21] MEDS: Oxybutynin ER 5 MG TAB PO SCH (09:09)
[2021-03-21] MEDS: Lidocaine 5% Patch TD SCH (09:10)
[2021-03-21] MEDS: Acetaminophen 325 MG TAB PO PRN (12:06)
[2021-03-21] MEDS: Atorvastatin Calcium 40 MG TAB PO SCH (20:27)
[2021-03-21] MEDS: Transdermal Patch Removal TOP SCH (21:11)
[2021-03-21] MEDS: Lorazepam 2 MG/ML VIAL SLOW IVP PRN (22:30)
[2021-03-21] MEDS: HYDROcodone/Acetaminophen 5/325 mg Tablet PO PRN (23:51)
[2021-03-22] MEDS: Carbidopa/Levodopa 25-250 mg Tablet PO SCH ×2 (09:32→20:21)
[2021-03-22] MEDS: Oxybutynin ER 5 MG TAB PO SCH (09:32)
[2021-03-22] MEDS: Tamsulosin HCl 0.4 MG CAP PO SCH (09:32)
[2021-03-22] MEDS: Amiodarone 200 MG TAB PO SCH ×2 (09:32→20:20)
[2021-03-22] MEDS: Famotidine 20 MG TAB PO SCH ×2 (09:32→20:21)
[2021-03-22] MEDS: Aspirin 81 mg Enteric Coated Tablet PO SCH (09:32)
[2021-03-22] MEDS: Enoxaparin Sodium 40 MG/0.4 ML SYRINGE SC SCH (09:33)
[2021-03-22] MEDS: Lidocaine 5% Patch TD SCH (09:40)
[2021-03-22] MEDS: Atorvastatin Calcium 40 MG TAB PO SCH (20:20)
[2021-03-22] MEDS: Transdermal Patch Removal TOP SCH (20:26)
[2021-03-22] MEDS: Lorazepam 2 MG/ML VIAL SLOW IVP PRN (21:33)
[2021-03-22] MEDS: HYDROcodone/Acetaminophen 5/325 mg Tablet PO PRN (21:33)
[2021-03-23] MEDS: Oxybutynin ER 5 MG TAB PO SCH (09:07)
[2021-03-23] MEDS: Amiodarone 200 MG TAB PO SCH ×2 (09:07→21:19)
[2021-03-23] MEDS: Tamsulosin HCl 0.4 MG CAP PO SCH (09:07)
[2021-03-23] MEDS: Aspirin 81 mg Enteric Coated Tablet PO SCH (09:07)
[2021-03-23] MEDS: Enoxaparin Sodium 40 MG/0.4 ML SYRINGE SC SCH (09:08)
[2021-03-23] MEDS: Carbidopa/Levodopa 25-250 mg Tablet PO SCH ×2 (09:08→21:19)
[2021-03-23] MEDS: Famotidine 20 MG TAB PO SCH ×2 (09:08→21:19)
[2021-03-23] MEDS: Lidocaine 5% Patch TD SCH (11:30)
[2021-03-23] MEDS: HYDROcodone/Acetaminophen 5/325 mg Tablet PO PRN (21:19)
[2021-03-23] MEDS: Atorvastatin Calcium 40 MG TAB PO SCH (21:19)
[2021-03-23] MEDS: Transdermal Patch Removal TOP SCH (22:16)
[2021-03-24] MEDS: Amiodarone 200 MG TAB PO SCH ×2 (09:15→22:20)
[2021-03-24] MEDS: Carbidopa/Levodopa 25-250 mg Tablet PO SCH ×2 (09:15→22:19)
[2021-03-24] MEDS: Tamsulosin HCl 0.4 MG CAP PO SCH (09:15)
[2021-03-24] MEDS: Aspirin 81 mg Enteric Coated Tablet PO SCH (09:15)
[2021-03-24] MEDS: Famotidine 20 MG TAB PO SCH ×2 (09:15→22:19)
[2021-03-24] MEDS: Enoxaparin Sodium 40 MG/0.4 ML SYRINGE SC SCH (09:15)
[2021-03-24] MEDS: Oxybutynin ER 5 MG TAB PO SCH (09:18)
[2021-03-24] MEDS: HYDROcodone/Acetaminophen 5/325 mg Tablet PO PRN (09:31)
[2021-03-24] MEDS: Lidocaine 5% Patch TD SCH (09:35)
[2021-03-24] MEDS: Atorvastatin Calcium 40 MG TAB PO SCH (22:19)
[2021-03-24] MEDS: Transdermal Patch Removal TOP SCH (22:21)
[2021-03-25] MEDS: Oxybutynin ER 5 MG TAB PO SCH (10:17)
[2021-03-25] MEDS: Tamsulosin HCl 0.4 MG CAP PO SCH (10:18)
[2021-03-25] MEDS: Amiodarone 200 MG TAB PO SCH ×2 (10:18→20:41)
[2021-03-25] MEDS: Carbidopa/Levodopa 25-250 mg Tablet PO SCH ×2 (10:18→20:39)
[2021-03-25] MEDS: Famotidine 20 MG TAB PO SCH ×2 (10:18→20:41)
[2021-03-25] MEDS: Aspirin 81 mg Enteric Coated Tablet PO SCH (10:18)
[2021-03-25] MEDS: Enoxaparin Sodium 40 MG/0.4 ML SYRINGE SC SCH (10:18)
[2021-03-25] MEDS: Lidocaine 5% Patch TD SCH (10:19)
[2021-03-25] MEDS: HYDROcodone/Acetaminophen 5/325 mg Tablet PO PRN (10:19)
[2021-03-25] MEDS: Atorvastatin Calcium 40 MG TAB PO SCH (20:41)
[2021-03-25] MEDS: Transdermal Patch Removal TOP SCH (20:42)
[2021-03-26] MEDS: Amiodarone 200 MG TAB PO SCH ×2 (09:47→20:18)
[2021-03-26] MEDS: Carbidopa/Levodopa 25-250 mg Tablet PO SCH ×2 (09:47→20:18)
[2021-03-26] MEDS: Tamsulosin HCl 0.4 MG CAP PO SCH (09:47)
[2021-03-26] MEDS: Aspirin 81 mg Enteric Coated Tablet PO SCH (09:47)
[2021-03-26] MEDS: Enoxaparin Sodium 40 MG/0.4 ML SYRINGE SC SCH (09:47)
[2021-03-26] MEDS: Oxybutynin ER 5 MG TAB PO SCH (09:47)
[2021-03-26] MEDS: Famotidine 20 MG TAB PO SCH ×2 (09:47→20:18)
[2021-03-26] MEDS: Lidocaine 5% Patch TD SCH (09:58)
[2021-03-26] MEDS: Atorvastatin Calcium 40 MG TAB PO SCH (20:18)
[2021-03-26] MEDS: Transdermal Patch Removal TOP SCH (20:21)
[2021-03-27 08:07] VITALS: BP 144/64; TEMP 97.7
[2021-03-27] MEDS: Lidocaine 5% Patch TD SCH (09:48)
[2021-03-27] MEDS: Enoxaparin Sodium 40 MG/0.4 ML SYRINGE SC SCH (09:49)
[2021-03-27] MEDS: Carbidopa/Levodopa 25-250 mg Tablet PO SCH (09:50)
[2021-03-27] MEDS: Aspirin 81 mg Enteric Coated Tablet PO SCH (09:50)
[2021-03-27] MEDS: Famotidine 20 MG TAB PO SCH (09:50)
[2021-03-27] MEDS: Amiodarone 200 MG TAB PO SCH (09:50)
[2021-03-27] MEDS: Tamsulosin HCl 0.4 MG CAP PO SCH (09:51)
[2021-03-27] MEDS: Oxybutynin ER 5 MG TAB PO SCH (10:02)
[2021-03-27 11:08] LABS: ALT (SGPT) 29 U/L (8-55); AST (SGOT) 28 U/L (5-34); Albumin 3.4 g/dL (3.4-4.8); Alkaline Phosphatase 147 U/L (40-110); Anion Gap 16 mmol/L (10-20); BUN (Urea Nitrogen) 20 mg/dL (8.4-25.7); Bilirubin, Total 1.1 mg/dL (0.2-1.2); Calc. Creatinine Clearance 64 mL/min (70-130); Calcium 8.7 mg/dL (7.8-10.44); Carbon Dioxide 27 mmol/L (23-31); Chloride 99 mmol/L (98-107); Globulin 3.4 g/dL (2.4-3.5); Glucose 108 mg/dL (83-110); Potassium 4.7 mmol/L (3.5-5.1); Protein, Total 6.8 g/dL (5.8-8.1); Sodium 137 mmol/L (136-145)
[2021-03-27 11:16] LABS: Magnesium 2.2 mg/dL (1.6-2.6); Phosphorus 3.5 mg/dL (2.3-4.7)
== END 2021-03-27 14:00 | disposition home health service (06) | DRG 260 ==
LOC: ERS 19:26 → 2NO 22:03 → ONC 03-17 19:40
PROVIDERS: ADMIT Internal Medicine; ATTEND Student in an Organized Health Care Education/Training Program
PROC: 0JH632Z Insertion of Monitoring Device into Chest Subcutaneous Tissue and Fascia, Percutaneous Approach (ICD-10-PCS; principal; 2021-03-15)
DX: I47.2 Ventricular tachycardia (principal); G92 Toxic encephalopathy; I21.A1 Myocardial infarction type 2; Z20.822 Contact with and (suspected) exposure to COVID-19; S42.251A Displaced fracture of greater tuberosity of right humerus, initial encounter for closed fracture; F05 Delirium due to known physiological condition; M62.82 Rhabdomyolysis; E87.1 Hypo-osmolality and hyponatremia; G20 Parkinson's disease; E78.5 Hyperlipidemia, unspecified; N18.2 Chronic kidney disease, stage 2 (mild); I34.0 Nonrheumatic mitral (valve) insufficiency; R29.6 Repeated falls; N40.0 Benign prostatic hyperplasia without lower urinary tract symptoms; D53.9 Nutritional anemia, unspecified; H91.90 Unspecified hearing loss, unspecified ear; W18.39XA Other fall on same level, initial encounter; Z79.899 Other long term (current) drug therapy; Z78.1 Physical restraint status; Z28.21 Immunization not carried out because of patient refusal; Z79.82 Long term (current) use of aspirin; Z86.73 Personal history of transient ischemic attack (TIA), and cerebral infarction without residual deficits; Z85.46 Personal history of malignant neoplasm of prostate; Z98.890 Other specified postprocedural states; Z91.81 History of falling
CPT/HCPCS: 33285; 36415; 70450; 71045; 80048; 80053; 82550; 82553; 83690; 83735; 83880; 84100; 84439; 84443; 84481; 84484; 85007; 85025; 85027; 93005; 93306; 96365; 96366; 96376; C1764; G0390; J0282; J1650; J2060; J3475; J7070; U0002; U0003; U0005

== ENCOUNTER 2021-10-09 23:05 | Emergency (ER) | payer MEDICARE ==
[2021-10-09] MEDS ORDERED: Boostrix 0.5 ML (Tdap) VIAL ONE (23:57)
[2021-10-10] MEDS ORDERED: Xylocaine 1% w/ Epi 1:100K 10 ML VIAL ONE (00:45)
== END 2021-10-10 02:55 | disposition home or self-care (01) ==
LOC: ERS 23:05
DX: S51.812A Laceration without foreign body of left forearm, initial encounter (principal); Z23 Encounter for immunization; W18.30XA Fall on same level, unspecified, initial encounter; W22.8XXA Striking against or struck by other objects, initial encounter; Z85.47 Personal history of malignant neoplasm of testis
CPT/HCPCS: 12004; 90471; 90715

== ENCOUNTER 2021-10-21 10:02 | Emergency (ER) | payer MEDICARE | END 2021-10-21 11:24 | disposition home or self-care (01) | LOC: ERS 10:02 | DX: S51.812D Laceration without foreign body of left forearm, subsequent encounter (principal); G20 Parkinson's disease; Z85.47 Personal history of malignant neoplasm of testis | CPT/HCPCS: 99281 ==

== ENCOUNTER 2022-07-11 10:31 | Emergency (ER) | payer MEDICARE ==
[2022-07-11 11:12] LABS: Hemoglobin 13.1 g/dL (14.0-18.0); Mean Corpuscular Hemoglobin 29.3 pg (27.0-31.0); Mean Corpuscular Volume 91.4 fl (78.0-98.0); Mean Platelet Volume 6.8 fL (7.4-10.4); Platelet Count 187 10x3/uL (130-400); RBC Distribution Width 12.8 % (11.5-14.5); Red Blood Cell (RBC) Count 4.47 mill/uL (4.70-6.10); White Blood Cell (WBC) Count 3.2 10x3/uL (4.8-10.8)
[2022-07-11 11:41] LABS: Band 7 % (5-11); Burr Cells SLIGHT = 2-5 cells (100X) (0-1/hpf); Lymphocytes 17 % (21-51); MDiff Complete? YES; Monocytes 12 % (0-10); Neutrophil 63 % (42-75); Platelet Morphology Comment Appears Adequate; Polychromasia SLIGHT = 2-3 cells (100X) (0-2/hpf); Reactive Lymphocytes 1 % (0-10)
[2022-07-11 12:01] LABS: ALT (SGPT) 41 U/L (8-55); AST (SGOT) 40 U/L (5-34); Albumin 4.1 g/dL (3.4-4.8); Alkaline Phosphatase 124 U/L (40-110); Anion Gap 11 mmol/L (10-20); BUN (Urea Nitrogen) 15 mg/dL (8.4-25.7); Bilirubin, Total 1.2 mg/dL (0.2-1.2); Calc. Creatinine Clearance 0 mL/min (70-130); Calcium 9.2 mg/dL (7.8-10.44); Carbon Dioxide 29 mmol/L (23-31); Chloride 96 mmol/L (98-107); Estimated GFR 64; Globulin 3.8 g/dL (2.4-3.5); Glucose 102 mg/dL (83-110); Potassium 4.2 mmol/L (3.5-5.1); Protein, Total 7.9 g/dL (5.8-8.1); Sodium 132 mmol/L (136-145)
[2022-07-11 14:10] LABS: Bilirubin Negative (Negative); Blood, Urine Negative (Negative); Clarity Clear (Clear); Glucose, Urine (Dipstick) Normal (Negative); Ketone, Urine Negative (Negative); Leukocyte Negative Leu/uL (Negative); Nitrite Negative (Negative); Protein, Urine (Dipstick) Negative (Neg-Trace); Urobilinogen 3 mg/dL (Less than 2); pH, Urine 5.5 (5.0-9.0)
== END 2022-07-11 14:37 | disposition home or self-care (01) ==
LOC: ERS 10:31
DX: S83.91XA Sprain of unspecified site of right knee, initial encounter (principal); G20 Parkinson's disease; F02.80 Dementia in other diseases classified elsewhere, unspecified severity, without behavioral disturbance, psychotic disturbance, mood disturbance, and anxiety; E78.00 Pure hypercholesterolemia, unspecified; W05.0XXA Fall from non-moving wheelchair, initial encounter; Z86.73 Personal history of transient ischemic attack (TIA), and cerebral infarction without residual deficits; Z79.82 Long term (current) use of aspirin; Z79.899 Other long term (current) drug therapy
CPT/HCPCS: 70450; 72170; 80053; 81003; 85025; 93005; 94760

== ENCOUNTER 2022-07-13 10:02 | Inpatient (IN) | payer MEDICARE ==
[2022-07-13 11:25] LABS: #Lymphocytes 0.3 thou/uL (1.20-3.40); #Monocytes 0.4 thou/uL (0.11-0.59); #Neutrophils 3.2 thou/uL (1.40-6.50); %Eosinophils 0.3 % (0.0-10.0); %Lymphocytes 7.9 % (21.0-51.0); %Neutrophils 80.8 % (42.0-75.0); Hemoglobin 12.2 g/dL (14.0-18.0); Mean Corpuscular HGB CONC 32.5 g/dL (32.0-36.0); Mean Corpuscular Hemoglobin 29.7 pg (27.0-31.0); Mean Corpuscular Volume 91.6 fl (78.0-98.0); Mean Platelet Volume 6.9 fL (7.4-10.4); Platelet Count 150 10x3/uL (130-400); RBC Distribution Width 12.6 % (11.5-14.5); Red Blood Cell (RBC) Count 4.09 mill/uL (4.70-6.10); White Blood Cell (WBC) Count 3.9 10x3/uL (4.8-10.8)
[2022-07-13 11:45] LABS: ALT (SGPT) 42 U/L (8-55); AST (SGOT) 37 U/L (5-34); Albumin 3.6 g/dL (3.4-4.8); Alkaline Phosphatase 108 U/L (40-110); Anion Gap 11 mmol/L (10-20); BUN (Urea Nitrogen) 16 mg/dL (8.4-25.7); Bilirubin, Total 1.1 mg/dL (0.2-1.2); Calc. Creatinine Clearance 0 mL/min (70-130); Calcium 8.4 mg/dL (7.8-10.44); Carbon Dioxide 28 mmol/L (23-31); Chloride 95 mmol/L (98-107); Estimated GFR 56; Globulin 2.9 g/dL (2.4-3.5); Glucose 108 mg/dL (83-110); Potassium 4.3 mmol/L (3.5-5.1); Protein, Total 6.5 g/dL (5.8-8.1); Sodium 130 mmol/L (136-145)
[2022-07-13 12:07] LABS: CKMB 1.7 ng/mL (0-6.6)
[2022-07-13] MEDS ORDERED: Aspirin Chewable 81 MG TAB ONE (12:19)
[2022-07-13] MEDS ORDERED: cefTRIAXone\\ROCEPHIN 2 GM VIAL ONE (12:52)
[2022-07-13] MEDS ORDERED: Azithromycin 500 MG VIAL ONE (13:43)
[2022-07-13] MEDS ORDERED: Senokot S 8.6-50 MG TAB PO PRN (15:09)
[2022-07-13] MEDS ORDERED: Acetaminophen 325 MG TAB PO PRN (15:09)
[2022-07-13] MEDS ORDERED: HYDROcodone/Acetaminophen 5/325 mg Tablet PO PRN (15:09)
[2022-07-13 16:03] LABS: Troponin I 0.032 ng/mL (< 0.028)
[2022-07-13] MEDS ORDERED: Sodium Chloride 0.9% 1,000 ML IV SCH (16:15)
[2022-07-13 17:58] LABS: Troponin I 0.036 ng/mL (< 0.028)
[2022-07-13 20:01] VITALS: BMI 30.1
[2022-07-13 20:41] LABS: SARS-CoV-2 NAA Rapid Test Not Detected (NotDetected)
[2022-07-13] MEDS: Cefepime 1 GM in Sodium Chloride 0.9% 100 ML IVPB SCH (22:05)
[2022-07-13] MEDS: Heparin 5,000 UNITS/ML VIAL SC SCH (22:05)
[2022-07-13] MEDS: Carbidopa/Levodopa 25-250 mg Tablet PO SCH (23:08)
[2022-07-13] MEDS: Famotidine 20 MG TAB PO SCH (23:09)
[2022-07-14 05:00] LABS: #Lymphocytes 0.6 thou/uL (1.20-3.40); #Monocytes 0.4 thou/uL (0.11-0.59); #Neutrophils 1.8 thou/uL (1.40-6.50); %Basophils 0.3 % (0.0-1.0); %Eosinophils 1.7 % (0.0-10.0); %Lymphocytes 22.6 % (21.0-51.0); %Monocytes 12.5 % (0.0-10.0); %Neutrophils 62.8 % (42.0-75.0); Hemoglobin 11.2 g/dL (14.0-18.0); Mean Corpuscular Hemoglobin 29.8 pg (27.0-31.0); Mean Corpuscular Volume 90.4 fl (78.0-98.0); Mean Platelet Volume 7.1 fL (7.4-10.4); Platelet Count 129 10x3/uL (130-400); RBC Distribution Width 12.5 % (11.5-14.5); Red Blood Cell (RBC) Count 3.75 mill/uL (4.70-6.10); White Blood Cell (WBC) Count 2.8 10x3/uL (4.8-10.8)
[2022-07-14 05:19] LABS: ALT (SGPT) Less than 7 U/L (8-55); AST (SGOT) 31 U/L (5-34); Albumin 3.1 g/dL (3.4-4.8); Alkaline Phosphatase 87 U/L (40-110); Anion Gap 11 mmol/L (10-20); BUN (Urea Nitrogen) 13 mg/dL (8.4-25.7); Bilirubin, Total 0.7 mg/dL (0.2-1.2); Calc. Creatinine Clearance 62 mL/min (70-130); Calcium 8.4 mg/dL (7.8-10.44); Carbon Dioxide 25 mmol/L (23-31); Chloride 98 mmol/L (98-107); Estimated GFR 81; Globulin 3.1 g/dL (2.4-3.5); Glucose 86 mg/dL (83-110); Protein, Total 6.2 g/dL (5.8-8.1); Sodium 130 mmol/L (136-145)
[2022-07-14] MEDS ORDERED: FLU VACC QS2022-23(65YR UP)/PF 240 MCG/0.7 ML SYRINGE IM ONE (09:00)
[2022-07-14] MEDS: Amiodarone 200 MG TAB PO SCH (10:24)
[2022-07-14] MEDS: Heparin 5,000 UNITS/ML VIAL SC SCH ×3 (10:24→21:31)
[2022-07-14] MEDS: Carbidopa/Levodopa 25-250 mg Tablet PO SCH ×4 (10:24→23:36)
[2022-07-14] MEDS: Famotidine 20 MG TAB PO SCH ×3 (10:24→23:36)
[2022-07-14] MEDS: Tamsulosin HCl 0.4 MG CAP PO SCH (10:24)
[2022-07-14] MEDS: Cefepime 1 GM in Sodium Chloride 0.9% 100 ML IVPB SCH ×2 (10:24→21:30)
[2022-07-14] MEDS: Doxycycline 100 MG CAP PO SCH ×2 (21:31→23:36)
[2022-07-15] MEDS: Amiodarone 200 MG TAB PO SCH (09:22)
[2022-07-15] MEDS: Famotidine 20 MG TAB PO SCH (09:22)
[2022-07-15] MEDS: Doxycycline 100 MG CAP PO SCH (09:22)
[2022-07-15] MEDS: Tamsulosin HCl 0.4 MG CAP PO SCH (09:23)
[2022-07-15] MEDS: Heparin 5,000 UNITS/ML VIAL SC SCH ×2 (09:23→14:51)
[2022-07-15] MEDS: Cefepime 1 GM in Sodium Chloride 0.9% 100 ML IVPB SCH (09:23)
[2022-07-15] MEDS: Carbidopa/Levodopa 25-250 mg Tablet PO SCH ×2 (09:26→14:51)
[2022-07-15 18:21] VITALS: BP 130/72; TEMP 97.2
== END 2022-07-15 17:30 | disposition home health service (06) | DRG 177 ==
LOC: ERS 10:02 → ERHOLD 14:26 → 2NO 18:05
PROVIDERS: ADMIT Internal Medicine Nephrology; ATTEND Internal Medicine
DX: J69.0 Pneumonitis due to inhalation of food and vomit (principal); G93.41 Metabolic encephalopathy; I24.8 Other forms of acute ischemic heart disease; N17.9 Acute kidney failure, unspecified; Z20.822 Contact with and (suspected) exposure to COVID-19; N18.2 Chronic kidney disease, stage 2 (mild); G20 Parkinson's disease; Z79.82 Long term (current) use of aspirin
CPT/HCPCS: 36415; 70450; 71045; 71250; 72170; 80053; 81003; 82553; 83605; 83880; 84484; 85025; 87040; 93005; 93306; 94760; J0456; J0692; J0696; J1644; J3490; J7050